=== PATIENT | male | born 1990 | race Caucasian/White ===

== ENCOUNTER 2020-12-22 14:33 | Emergency (ER) | payer OTHER, SELFPAY ==
[2020-12-22 15:34] VITALS: BP 119/67; PULSE 90; RESP 16; TEMP 36.8; O2SAT 98; BMI 27.7
[2020-12-22 17:37] VITALS: BP 128/84; PULSE 72; RESP 18; O2SAT 98
[2020-12-22 18:00] VITALS: BP 130/71; PULSE 66; RESP 18; O2SAT 96
[2020-12-22 18:00] LABS: Basophils # 0.1 10^3/uL (0.0-0.1); Basophils % 0.7 %; Eosinophils # 0.3 10^3/uL (0.0-0.8); Eosinophils % 2.2 %; Hematocrit 51.4 % (42.0-52.0); Hemoglobin 17.5 g/dL (11.7-16.6); Lymphocytes # 2.4 10^3/uL (0.8-4.8); Lymphocytes % 19.3 %; Mean Corpuscular Hemoglobin 28.5 pg (28.0-34.0); Mean Corpuscular Volume 83.6 fL (80-94); Mean Platelet Volume 9.9 fL (7.4-10.4); Monocytes # 0.7 10^3/uL (0.2-0.9); Monocytes % 6.1 %; Neutrophils # 8.72 10^3/uL (1.8-7.7); Neutrophils % 71.2 %; Nucleated Red Blood Cells % 0 %; Platelet Count 406 10^3/cmm (130-400); Red Blood Count 6.15 10^6/uL (4.1-5.3); Red Cell Distribution Width 12.2 % (12.1-15.1); White Blood Count 12.2 10^3/uL (4.0-10.0)
[2020-12-22 18:10] LABS: Add Urine Microscopic? NO; Charge for UA Resulting for Rev
[2020-12-22 18:18] LABS: Urine Appearance Clear (CLEAR); Urine Color Yellow (Yellow); pH Urine 6.5 (5-7)
--- NOTE | 2020-12-22 18:18 | ED_ITS ---
HPI - Abdominal Pain General: Chief Complaint: Abdominal Pain Stated Complaint: abd pain *1 months Time Seen by Provider: 12/22/20 17:46 History of Present Illness: HPI narrative: Patient is a 30-year-old male comes to the ED with abdominal pain. Patient says pain started about a month ago. Pain is located in the right lower quadrant of the abdomen. At rest he does not feel any pain but then when he starts moving around he starts feeling the pain in his right lower quadrant of his abdomen. Denies any nausea, vomiting, fevers, diarrhea, dysuria or hematuria. He endorses having some constipation issues. Associated Symptoms: Denies chills, constipation, diarrhea, dysuria, fever(s), hematochezia, hematuria, nausea and vomiting Review of Systems Const: Denies: fever(s), chills or fatigue Eyes: Denies: change in vision or eye discomfort ENMT: Denies: throat pain, odynophagia, nasal discharge or nasal congestion Card: Denies: chest pain, palpitations, edema, swelling of feet/ankles, dyspnea on exertion or orthopnea Resp: Denies: dyspnea, productive cough or non-productive cough GI: Reports: abdominal pain; Denies: nausea, vomiting, diarrhea, constipation or hematochezia : Denies: flank pain, difficulty urinating, dysuria or hematuria Musc: Denies: neck pain, back pain or extremity swelling Skin/Breast: Denies: rash or new lesions Neuro: Denies: headache(s), numbness in extremities or weakness in extremities PFSH ED PFSH: Social History Smoking and tobacco status: former smoker Alcohol intake: current Alcohol intake frequency: holidays/special occasions only Current gender identity: Male Physical Exam Const: COMMON NORMALS: no acute distress, patient oriented x3, healthy appearing and alert GENERAL APPEARANCE: cooperative and comfortable HENMT: COMMON NORMALS: normocephalic HEAD & SCALP: normocephalic MOUTH: Normal oral and palatal mucosa present THROAT: posterior oropharynx normal and uvula midline Neck/C-Spine: COMMON NORMALS: supple GENERAL: Yes normal visual inspection Resp: COMMON NORMALS: normal respiratory effort, No retractions, No use of accessory muscles and clear to auscultation bilaterally AUSCULTATION: clear to auscultation bilaterally Cardio: COMMON NORMALS: regular rate, regular rhythm, S1 normal heart sound present, S2 normal heart sound present, No gallops present (Cardio), No clicks present (Cardio), No murmurs present (Cardio) and Peripheral pulses 2+ throughout RATE: regular rate RHYTHM: regular rhythm HEART SOUNDS: S1 normal heart sound present and S2 normal heart sound present PERIPHERAL PULSES: Peripheral pulses 2+ throughout GI: COMMON NORMALS: Normal to inspection, nondistended, normoactive bowel sounds present, Soft to palpation and no masses PALPATION: Yes Soft to palpation and Yes Tenderness to palpation present (GI) Details: RLQ : COMMON NORMALS: Yes no CVA tenderness BLADDER/KIDNEY EXAM: Yes no CVA tenderness Back/Pelvis: COMMON NORMALS: no CVA tenderness Extremity: COMMON NORMALS: normal to inspection Neuro: COMMON NORMALS: patient oriented x3 SENSORIUM/ORIENTATION: Yes alert GAIT: Yes Normal gait present Skin: GENERAL SKIN EXAM: dry skin Course Vital Signs: Vital signs: Vital Signs Temperature 98.2 F 12/22/20 15:34 Pulse Rate 66 12/22/20 18:00 Respiratory Rate 18 12/22/20 18:00 Blood Pressure 130/71 12/22/20 18:00 Pulse Oximetry 96 12/22/20 18:00 MDM - Abdominal Pain MDM Narrative: Medical decision making narrative: Patient is a 30-year-old male comes to the ED with abdominal pain. Pain only occurs when he is up and ambulating. No pain at rest. He has no other symptoms. Abdominal pain has been going on for the past month. White blood cell count 12.2. All other labs were unremarkable. CT of abdomen pelvis showed no acute findings. Patient was diagnosed with abdominal pain and discharged home. He was told to follow-up with his PCP in 7 to 10 days for reevaluation. Return to ED precautions given. Patient understood agree with plan. Lab Data: Attestation: I reviewed the patient's lab results. Labs: Lab Results 12/22/20 12/22/20 12/22/20 Range/Units 17:45 17:45 17:45 WBC 12.2 H (4.0-10.0) 10^3/ uL RBC 6.15 H (4.1-5.3) 10^6/u L Hgb 17.5 H (11.7-16.6) g/dL Hct 51.4 (42.0-52.0) % MCV 83.6 (80-94) fL MCH 28.5 (28.0-34.0) pg MCHC 34.0 (30.0-36.0) g/dL RDW 12.2 (12.1-15.1) % Plt Count 406 H (130-400) 10^3/c mm MPV 9.9 (7.4-10.4) fL Neut % (Auto) 71.2 % Lymph % (Auto) 19.3 % [place] % (Auto) 6.1 % Eos % (Auto) 2.2 % Baso % (Auto) 0.7 % Neut # (Auto) 8.72 H (1.8-7.7) 10^3/u L Lymph # (Auto) 2.4 (0.8-4.8) 10^3/u L [place] # (Auto) 0.7 (0.2-0.9) 10^3/u L Eos # (Auto) 0.3 (0.0-0.8) 10^3/u L Baso # (Auto) 0.1 (0.0-0.1) 10^3/u L Nucleated RBC % (a uto) 0 % Nucleated RBCs # 0.0 /100WBC Sodium 140 (136-145) mmol/L Potassium 4.0 (3.5-5.1) mmol/L Chloride 103 (98-107) mmol/L Carbon Dioxide 27 (22-29) mmol/L Anion Gap 14.0 (5-19) BUN 14 (6-20) mg/dL Creatinine 0.9 (0.7-1.2) mg/dL GFR Calculation 99.1 (90-130) mL/min Glucose 86 (65-115) mg/dL Calculated Osmolal ity 290 (285-295) mOsm/k g Calcium 8.9 (8.5-10.5) mg/dL Total Bilirubin 0.5 (0.15-1.2) mg/dL AST 20 (0-40) U/L ALT 23 (0-41) U/L Alkaline Phosphata se 77 (40-130) IU/L Total Protein 7.4 (6.6-8.7) g/dL Albumin 4.8 (3.5-5.2) g/dL Globulin 2.6 (1.3-4.6) g/dL Lipase 23 (13-60) U/L Urine Color Yellow (Yellow) Urine Appearance Clear (CLEAR) Urine pH 6.5 (5-7) Ur Specific Gravit y 1.015 (1.005-1.030) Urine Protein Neg (Negative) Urine Glucose (UA) Norm (Normal) Urine Ketones Negative (Negative) Urine Blood Neg (Negative) Urine Nitrate Negative (Negative) Urine Bilirubin Neg (Negative) Urine Urobilinogen Norm (Negative) mg/dL Ur Leukocyte Lorraine ase Negative (Negative) Imaging Data ^: CT Abd/Pel: Attestation: I personally reviewed and interpreted this imaging study as follows: Radiologist's impression: [facility] [address] [address] Scan Report Signed Patient: Fernandez House Unit #: [id number] : 1990 Age/Sex: 30 / M ADM Date: 12/22/20 Loc: ER Room/Bed: Attending Dr: Ordering Provider/Ordering MD: Jf Bejarano Date of Service: 12/22/20 Procedure(s): CT abdomen pelvis w con* [id number] Accession Number(s): [id number] Report Number: [id number] PROCEDURE INFORMATION: Exam: CT Abdomen And Pelvis With Contrast Exam date and time: 12/22/2020 6:18 PM Age: 30 years old Clinical indication: Abdominal pain; Localized; Right lower quadrant (rlq); Patient HX: C/O intermittent rlq pain x 1 month; Additional info: Rlq abdom pain TECHNIQUE: Imaging protocol: Computed tomography of the abdomen and pelvis with contrast. Total images: 239 Radiation optimization: All CT scans at this facility use at least one of these dose optimization techniques: automated exposure control; mA and/or kV adjustment per patient size (includes targeted exams where dose is matched to clinical indication); or iterative reconstruction. Contrast material: OMNI 300; Contrast volume: 95 ml; Contrast route: INTRAVENOUS (IV); COMPARISON: CT abdomen pelvis w con* [id number] 09/04/2017 7:09 PM RADIATION DOSE METRICS: Total DLP (mGy-cm): 1435.11 FINDINGS: Lungs: Limited assessment of the lung bases fails to reveal evidence for active cardiopulmonary process. Liver: Rare tiny hepatic cysts. No hepatic mass. Gallbladder and bile ducts: Normal. No calcified stones. No ductal dilation. Pancreas: Pancreas is unremarkable. No visible pancreatic ductal ectasia. Spleen: Spleen unremarkable. Adrenal glands: Adrenal glands unremarkable. Kidneys and ureters: No hydronephrosis or perinephric fluid. No visible nephrolithiasis or ureterolithiasis. Stomach and bowel: Assessment of the hollow viscus fails to reveal evidence of active or acute pathology. Nonobstructed bowel pattern. No visible acute diverticulitis. No visible adynamic or reactive ileus. Appendix: The appendix is visualized and appears noninflamed. Intraperitoneal space: No visible evidence of mesenteric lymphadenitis or active mesenteritis/panniculitis. Vasculature: Portal vein patent. The abdominal aorta is nonaneurysmal. Lymph nodes: No current visible evidence of active mesenteric or retroperitoneal lymphadenopathy. Urinary bladder: Urinary bladder unremarkable. Reproductive: Unremarkable as visualized. Bones/joints: No visible active or acute osseous pathology. Bilateral spondylolysis L5/S1 with minimal grade 1 anterior spondylolisthesis. Soft tissues: Unremarkable. CT/CT abdomen pelvis w con* [id number] IMPRESSION: 1. Currently no visible evidence for acute abdominal or pelvic pathologic process. 2. The appendix is visualized and appears noninflamed. Radiation Dose CTDIVOL = (mGy): DLP = 1435.11 (mGy-cm) Dictated By: Abner Martin Signed By: Abner Martin Signed Date/Time: 12/22/201850 DD/ 48 Discharge Plan Discharge Patient Disposition: Home Clinical Impression: Abdominal pain Qualifiers: Abdominal location: right lower quadrant Qualified Code(s): R10.31 - Right lower quadrant pain Condition: Stable Prescriptions: No Action multivitamin [One Daily Multivitamin] Tablet 1 tab PO DAILY RF: 0 Adult Probiotic 3 billion cell capsule 3,000 mmu cells PO DAILY RF: 0 amoxicillin-pot clavulanate 875-125 mg tablet 1 tab PO BID 10 Days Qty: 20 RF: 0 prednisone 20 mg tablet 40 mg PO DAILY 5 Days Qty: 10 RF: 0 Discharge Orders: Discharge ED (Routine); Ordered 12/22/20 Ordered By: Jf Bejarano Referrals: Barbe,Wilmer, DO [Primary Care Provider] - Discharge Diet: Regular Discharge Activity: Resume usual activity Patient Instructions: Abdominal Pain (ED) Activity Restrictions/Additional Instructions: Follow-up with medical provider as directed in 7 to 10 days for reevaluation. Continue taking all home medications as prescribed. You can take [id number] Tylenol or ibuprofen for any pain. Make sure to drink plenty fluids and stay hydrated. Return to the ER or your medical provider if condition worsens. Please read and understand discharge instructions. Thank you for choosing [facility] for your healthcare needs today. Please realize this is an emergency room and that we are providing you with a medical screening exam and this may not be complete and all inclusive of all the testing and or work up that you may need to determine your ailment or severity of your illness. It is very important that you follow up as instructed or that you return to the Emergency Department should you have concerns or if your condition changes or worsens in any way. 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
[2020-12-22 18:19] LABS: Bilirubin Urine Neg (Negative); Blood Urine Neg (Negative); Glucose Urine UA Norm (Normal); Ketones Urine Negative (Negative); Leukocyte Esterase Urine Negative (Negative); Nitrate Urine Negative (Negative); Protein Urine Neg (Negative); Specific Gravity, Urine 1.015 (1.005-1.030); Urobilinogen Urine Norm (Negative)
[2020-12-22 18:24] LABS: Alanine Aminotransferase 23 U/L (0-41); Albumin Level 4.8 g/dL (3.5-5.2); Alkaline Phosphatase 77 IU/L (40-130); Aspartate Amino Transferase 20 U/L (0-40); Blood Urea Nitrogen 14 mg/dL (6-20); Calcium 8.9 mg/dL (8.5-10.5); Carbon Dioxide 27 mmol/L (22-29); Chloride 103 mmol/L (98-107); Globulin 2.6 g/dL (1.3-4.6); Glomerular Filtration Rate 99.1 mL/min (90-130); Glucose 86 mg/dL (65-115); Lipase 23 U/L (13-60); Osmolality Calculated 290 mOsm/kg (285-295); Sodium 140 mmol/L (136-145); Total Bilirubin 0.5 mg/dL (0.15-1.2); Total Protein 7.4 g/dL (6.6-8.7)
[2020-12-22] MEDS: iohexol 300 mg/mL 100 mL Btl IV (18:33)
[2020-12-22] MEDS: sodium chloride 0.9% 500 ML 999 ML IV (18:55)
== END 2020-12-22 19:20 | disposition home or self-care (01) ==
PROVIDERS: Family Medicine; Emergency Provider Physician Assistant; PCP Family Medicine
DX: R10.31 Right lower quadrant pain (principal); Z87.891 Personal history of nicotine dependence
CPT/HCPCS: 74177; 80053; 81003; 83690; 85025; 99283; J7040; Q9967

== ENCOUNTER → 2021-04-27 16:25 | Outpatient (BNVA) | payer OTHER, SELFPAY | PROVIDERS: PCP Family Medicine; Visit Provider Registered Nurse Neonatal Intensive Care | DX: Z20.822 Contact with and (suspected) exposure to COVID-19 (principal) | CPT/HCPCS: 87635 ==

== ENCOUNTER 2021-05-19 18:07 | Emergency (ER) | payer OTHER, SELFPAY ==
[2021-05-19 18:11] VITALS: BP 125/83; PULSE 94; RESP 17; TEMP 37.1; O2SAT 97; BMI 29.5
--- NOTE | 2021-05-19 18:37 | ECG_ITS ---
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
--- NOTE | 2021-05-19 18:37 | XRR_ITS ---
PROCEDURE INFORMATION: Exam: XR Chest Exam date and time: 05/19/2021 6:37 PM Age: 31 years old Clinical indication: Shortness of breath; Additional info: SOB, cough TECHNIQUE: Imaging protocol: XR of the chest. Views: 1 view. COMPARISON: CR Chest 1 [place] [id number] 01/20/2018 10:49 PM FINDINGS: Lungs: Unremarkable. No consolidation. Pleural spaces: Unremarkable. No pleural effusion. No pneumothorax. Heart/Mediastinum: Unremarkable. No cardiomegaly. Bones/joints: Unremarkable. XR/XR chest 1V portable [id number] IMPRESSION: No acute findings.
--- NOTE | 2021-05-19 18:39 | ED_ITS ---
HPI - SOB/Dyspnea General: Chief Complaint: Shortness of Breath/Dyspnea Stated Complaint: DIFFICULTY BREATHING/ SOB Time Seen by Provider: 05/19/21 18:16 History of Present Illness: HPI Narrative: Patient is a 31-year-old male who comes to the ED with shortness of breath and chest pain. While patient was at work he started having coughing fit and felt short of breath and some left arm numbness during episode. He also reports chest pain that has been on and off for the the past several weeks since he had covid. He reports current chest pain is sharp in the middle of the chest and comes and goes throughout the day today. Patient said he had COVID-19 approximately 3 weeks ago and he is wondering if these are potentially some residual symptoms. He has had a consistent dry cough since he had COVID-19, but today his cough flared up. Patient used his albuterol inhaler during this episode of shortness of breath and cough and it did not improve symptoms. Denies any fever, chills, diaphoresis, heart palpitations, abdominal pain, nausea/vomiting, bladder or bowel symptoms. Associated symptoms: Reports chest pain; Deny abdominal pain, fever(s), nausea, orthopnea, palpitations or vomiting Review of Systems Const: Denies: fever(s), chills or fatigue Eyes: Denies: change in vision or eye discomfort ENMT: Denies: throat pain, odynophagia, nasal discharge or nasal congestion Card: Reports: chest pain; Denies: palpitations, edema, swelling of feet/ankles, dyspnea on exertion or orthopnea Resp: Reports: dyspnea and non-productive cough; Denies: productive cough GI: Denies: abdominal pain, nausea, vomiting, diarrhea, constipation or hematochezia : Denies: flank pain, difficulty urinating, dysuria or hematuria Musc: Denies: neck pain, back pain or extremity swelling Skin/Breast: Denies: rash or new lesions Neuro: Denies: headache(s), numbness in extremities or weakness in extremities PFSH ED PFSH: Social History Smoking and tobacco status: current some day smoker Alcohol intake: current Alcohol intake frequency: holidays/special occasions only Current gender identity: Male Physical Exam Const: COMMON NORMALS: no acute distress, patient oriented x3, healthy appearing and alert GENERAL APPEARANCE: cooperative and comfortable HENMT: COMMON NORMALS: normocephalic HEAD & SCALP: normocephalic MOUTH: Normal oral and palatal mucosa present THROAT: posterior oropharynx normal and uvula midline Neck/C-Spine: COMMON NORMALS: supple GENERAL: Yes normal visual inspection Resp: COMMON NORMALS: normal respiratory effort, No retractions, No use of accessory muscles and clear to auscultation bilaterally EFFORT & INSPECTION: Yes able to speak in complete sentences, No tachypneic, No respiratory distress, No labored and Yes Actively coughing non-productive and strong AUSCULTATION: clear to auscultation bilaterally Cardio: COMMON NORMALS: regular rate, regular rhythm, S1 normal heart sound present, S2 normal heart sound present, No gallops present (Cardio), No clicks present (Cardio), No murmurs present (Cardio) and Peripheral pulses 2+ throughout RATE: regular rate RHYTHM: regular rhythm HEART SOUNDS: S1 normal heart sound present and S2 normal heart sound present PERIPHERAL PULSES: Peripheral pulses 2+ throughout GI: COMMON NORMALS: Normal to inspection, nondistended, normoactive bowel sounds present, Soft to palpation, non-tender and no masses PALPATION: Yes Soft to palpation : COMMON NORMALS: Yes no CVA tenderness BLADDER/KIDNEY EXAM: Yes no CVA tenderness Back/Pelvis: COMMON NORMALS: no CVA tenderness Extremity: COMMON NORMALS: normal to inspection Neuro: COMMON NORMALS: patient oriented x3 and moves all extremities SENSORIUM/ORIENTATION: Yes alert Skin: GENERAL SKIN EXAM: dry skin Course Reevaluation(s): Reevaluation #1: After patient received DuoNeb breathing treatment his feeling of shortness of breath improved greatly. Patient says he feels a lot better and is ready to discharge home. Time: 20:25 Vital Signs: Vital signs: Vital Signs Temperature 98.7 F 05/19/21 18:11 Pulse Rate 119 H 05/19/21 20:27 Respiratory Rate 20 H 05/19/21 20:27 Blood Pressure 125/83 05/19/21 18:11 Pulse Oximetry 98 05/19/21 20:27 MDM - SOB/Dyspnea MDM Narrative: Medical decision making narrative: Patient is a 31-year-old male comes to the ED with some shortness of breath and chest pain. Patient was diagnosed with COVID-19 on April 27. He says since then he has had residual shortness of breath and chest pain. Today felt like his shortness of breath got worse. Vitals are stable. Exam shows a healthy 31-year-old male in no acute distress or pain. He is actively coughing is a very strong hacking type cough. Lungs are clear to auscultation bilaterally. Chest x-ray showed no acute findings. Labs were unremarkable and troponin was negative. EKG showed sinus rhythm [address] segment ovation depression seen. He was given a DuoNeb breathing treatment here in the ED and his symptoms improved greatly. He was also given a dose of Solu-Medrol as well. Patient was diagnosed with persistent shortness of breath after COVID-19 and was discharged home. He was told to continue using his at home inhaler as needed for any shortness of breath I also sent with a prescription for prednisone. Follow-up with PCP in 5 to 7 days reevaluation. Return to ED precautions given. Patient understood agree with plan. Lab Data: Attestation: I reviewed the patient's lab results. Labs: Lab Results 05/19/21 05/19/21 05/19/21 18:45 18:45 18:45 WBC 9.2 10^3/uL 10^3/ uL (4.0-10.0) RBC 5.96 10^6/uL H 10 ^6/uL (4.1-5.3) Hgb 17.1 g/dL H g/dL (11.7-16.6) Hct 49.0 % % (42.0-52.0) MCV 82.2 fl fl (80-94) MCH 28.7 pg pg (28.0-34.0) MCHC 34.9 g/dL g/dL (30.0-36.0) RDW 12.1 % % (12.1-15.1) Plt Count 400 10^3/cmm 10^3 /cmm (130-400) MPV 9.7 fL fL (7.4-10.4) Neut % (Auto) 70.9 % % Lymph % (Auto) 17.9 % % [place] % (Auto) 8.9 % % Eos % (Auto) 1.5 % % Baso % (Auto) 0.5 % % Neut # (Auto) 6.49 10^3/uL 10^3 /uL (1.8-7.7) Lymph # (Auto) 1.6 10^3/uL 10^3/ uL (0.8-4.8) [place] # (Auto) 0.8 10^3/uL 10^3/ uL (0.2-0.9) Eos # (Auto) 0.1 10^3/uL 10^3/ uL (0.0-0.8) Baso # (Auto) 0.1 10^3/uL 10^3/ uL (0.0-0.1) Nucleated RBC % (a uto) 0 % % Nucleated RBCs # 0.0 /100WBC /100W BC Sodium 138 mmol/L mmol/L (136-145) Potassium 3.7 mmol/L mmol/L (3.5-5.1) Chloride 100 mmol/L mmol/L (98-107) Carbon Dioxide 24 mmol/L mmol/L (22-29) Anion Gap 17.7 (5-19) BUN 11 mg/dL mg/dL (6-20) Creatinine 0.8 mg/dL mg/dL (0.7-1.2) GFR Calculation 112.8 mL/min mL/m in (90-130) Glucose 94 mg/dL mg/dL (65-115) Calculated Osmolal ity 285 mOsm/kg mOsm/ kg (285-295) Calcium 8.9 mg/dL mg/dL (8.5-10.5) Total Bilirubin 0.4 mg/dL mg/dL (0.15-1.2) AST 23 U/L U/L (0-40) ALT 32 U/L U/L (0-41) Alkaline Phosphata se 77 IU/L IU/L (40-130) Troponin T Gen 5 n g/L 6 ng/L ng/L (0-15) Total Protein 7.3 g/dL g/dL (6.6-8.7) Albumin 4.7 g/dL g/dL (3.5-5.2) Globulin 2.6 g/dL g/dL (1.3-4.6) Urine Color Urine Appearance Urine pH Ur Specific Gravit y Urine Protein Urine Glucose (UA) Urine Ketones Urine Blood Urine Nitrate Urine Bilirubin Prot Sulfosalicyli c Acd Urine Urobilinogen Ur Leukocyte Lorraine ase Urine RBC Urine WBC Ur Squamous Epith Cells Amorphous Sediment Urine Bacteria 05/19/21 18:45 WBC RBC Hgb Hct MCV MCH MCHC RDW Plt Count MPV Neut % (Auto) Lymph % (Auto) [place] % (Auto) Eos % (Auto) Baso % (Auto) Neut # (Auto) Lymph # (Auto) [place] # (Auto) Eos # (Auto) Baso # (Auto) Nucleated RBC % (a uto) Nucleated RBCs # Sodium Potassium Chloride Carbon Dioxide Anion Gap BUN Creatinine GFR Calculation Glucose Calculated Osmolal ity Calcium Total Bilirubin AST ALT Alkaline Phosphata se Troponin T Gen 5 n g/L Total Protein Albumin Globulin Urine Color Yellow (Yellow) Urine Appearance Clear (CLEAR) Urine pH 8 H (5-7) Ur Specific Gravit y 1.010 (1.005-1.030) Urine Protein Neg (Negative) Urine Glucose (UA) Norm (Normal) Urine Ketones Negative (Negative) Urine Blood Neg (Negative) Urine Nitrate Negative (Negative) Urine Bilirubin Neg (Negative) Prot Sulfosalicyli c Acd Negative (Negative) Urine Urobilinogen Norm mg/dL mg/dL (Negative) Ur Leukocyte Lorraine ase Negative (Negative) Urine RBC None /hpf /hpf (0-2) Urine WBC None /hpf /hpf (0-5) Ur Squamous Epith Cells None /hpf /hpf (0-5) Amorphous Sediment Not Reportable Urine Bacteria None /hpf /hpf (NONE) Imaging Data^: CXR: Attestation: I personally reviewed and interpreted this imaging study as follows: Radiologist's impression: [address] [address] XRay Report Signed Patient: Fernandez House Unit #: [id number] : 1990 Age/Sex: 31 / M ADM Date: 05/19/21 Loc: ER Room/Bed: Attending Dr: Ordering Provider/Ordering MD: Jf Bejarano Date of Service: 05/19/21 Procedure(s): XR chest 1V portable [id number] Accession Number(s): [id number] Report Number: [id number] PROCEDURE INFORMATION: Exam: XR Chest Exam date and time: 05/19/2021 6:37 PM Age: 31 years old Clinical indication: Shortness of breath; Additional info: SOB, cough TECHNIQUE: Imaging protocol: XR of the chest. Views: 1 view. COMPARISON: CR Chest 1 [place] [id number] 01/20/2018 10:49 PM FINDINGS: Lungs: Unremarkable. No consolidation. Pleural spaces: Unremarkable. No pleural effusion. No pneumothorax. Heart/Mediastinum: Unremarkable. No cardiomegaly. Bones/joints: Unremarkable. XR/XR chest 1V portable [id number] IMPRESSION: No acute findings. Dictated By: Geo Peter Signed By: Geo Peter Signed Date/Time: 05/19/212009 DD/ 36 EKG Data^: EKG 1: Attestation: I personally reviewed and interpreted this EKG as follows: EKG Interpretation Date: 05/19/21 Interpretation: Sinus rhythm, 81 bpm, no other acute findings. Discharge Plan Discharge Patient Disposition: Home Clinical Impression: Persistent shortness of breath after COVID-19 Condition: Stable Prescriptions: New prednisone 20 mg tablet 20 mg PO BID 5 Days Qty: 10 RF: 0 No Action multivitamin [One Daily Multivitamin] Tablet 1 tab PO DAILY RF: 0 Adult Probiotic 3 billion cell capsule 3,000 mmu cells PO DAILY RF: 0 ascorbate calcium (vitamin C) 500 mg tablet 500 mg PO DAILY RF: 0 albuterol sulfate 90 mcg/actuation HFA aerosol inhaler 2 puff inhalation Q6H PRN (Reason: shortness of breath or wheezing) Qty: 8.5 RF: 0 azithromycin 250 mg tablet See Rx Instructions PO .COMPLEX Qty: 6 RF: 0 Discharge Orders: Discharge ED (Routine); Ordered 05/19/21 Ordered By: Jf Bejarano Referrals: Wilmer Guevara DO [Primary Care Provider] - Discharge Diet: Regular Discharge Activity: Increase activity as tolerated Patient Instructions: Shortness of Breath (ED) Activity Restrictions/Additional Instructions: Follow-up with medical provider as directed in the next 7 to 10 days for reevaluation. Take medications as prescribed. Continue using your prescribed albuterol inhaler as needed for any acute shortness of breath or wheezing. Return to the ER or your medical provider if condition worsens. Please read and understand discharge instructions. Thank you for choosing [facility] for your healthcare needs today. Please realize this is an emergency room and that we are providing you with a medical screening exam and this may not be complete and all inclusive of all the testing and or work up that you may need to determine your ailment or severity of your illness. It is very important that you follow up as instructed or that you return to the Emergency Department should you have concerns or if your condition changes or worsens in any way. 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
[2021-05-19 19:00] LABS: Basophils # 0.1 10^3/uL (0.0-0.1); Basophils % 0.5 %; Eosinophils # 0.1 10^3/uL (0.0-0.8); Eosinophils % 1.5 %; Hemoglobin 17.1 g/dL (11.7-16.6); Lymphocytes # 1.6 10^3/uL (0.8-4.8); Lymphocytes % 17.9 %; Mean Corpuscular HGB Conc 34.9 g/dL (30.0-36.0); Mean Corpuscular Hemoglobin 28.7 pg (28.0-34.0); Mean Corpuscular Volume 82.2 fl (80-94); Mean Platelet Volume 9.7 fL (7.4-10.4); Monocytes # 0.8 10^3/uL (0.2-0.9); Monocytes % 8.9 %; Neutrophils # 6.49 10^3/uL (1.8-7.7); Neutrophils % 70.9 %; Nucleated Red Blood Cells % 0 %; Platelet Count 400 10^3/cmm (130-400); Red Blood Count 5.96 10^6/uL (4.1-5.3); Red Cell Distribution Width 12.1 % (12.1-15.1); White Blood Count 9.2 10^3/uL (4.0-10.0)
[2021-05-19 19:14] LABS: Bilirubin Urine Neg (Negative); Blood Urine Neg (Negative); Glucose Urine UA Norm (Normal); Ketones Urine Negative (Negative); Leukocyte Esterase Urine Negative (Negative); Nitrate Urine Negative (Negative); Protein Urine Neg (Negative); Sulfosalicylic Acid Urine Negative (Negative); Urine Appearance Clear (CLEAR); Urine Color Yellow (Yellow); Urobilinogen Urine Norm (Negative); pH Urine 8 (5-7)
[2021-05-19 19:15] LABS: Add Urine Culture? No
[2021-05-19 19:18] LABS: Troponin T (5th) Once 6 ng/L (0-15)
[2021-05-19 19:19] LABS: Alanine Aminotransferase 32 U/L (0-41); Albumin Level 4.7 g/dL (3.5-5.2); Alkaline Phosphatase 77 IU/L (40-130); Anion Gap 17.7 (5-19); Aspartate Amino Transferase 23 U/L (0-40); Blood Urea Nitrogen 11 mg/dL (6-20); Calcium 8.9 mg/dL (8.5-10.5); Carbon Dioxide 24 mmol/L (22-29); Chloride 100 mmol/L (98-107); Creatinine Clr Calc Pharmacy 148.9424; Globulin 2.6 g/dL (1.3-4.6); Glomerular Filtration Rate 112.8 mL/min (90-130); Glucose 94 mg/dL (65-115); Osmolality Calculated 285 mOsm/kg (285-295); Potassium 3.7 mmol/L (3.5-5.1); Sodium 138 mmol/L (136-145); Total Bilirubin 0.4 mg/dL (0.15-1.2); Total Protein 7.3 g/dL (6.6-8.7)
[2021-05-19 20:15] VITALS: PULSE 117; RESP 20; O2SAT 98
[2021-05-19] MEDS: ipratropium-albuterol 3 mL Neb 6 ML INHALATION (20:15)
[2021-05-19 20:27] VITALS: PULSE 119; RESP 20; O2SAT 98
== END 2021-05-19 20:50 | disposition home or self-care (01) ==
PROVIDERS: Emergency Provider Physician Assistant; PCP Family Medicine
DX: R06.02 Shortness of breath (principal); U09.9 Post COVID-19 condition, unspecified
CPT/HCPCS: 71045; 80053; 81001; 84484; 85025; 93005; 94640; 96374; 99284; J2930

== ENCOUNTER 2021-07-01 10:22 | Emergency (ER) | payer BC, SELFPAY ==
--- NOTE | 2021-07-01 10:35 | ED_ITS ---
HPI - Abdominal Pain General: Chief Complaint: Abdominal Pain Stated Complaint: ABD Pain, Thinks its a reaction to meds Time Seen by Provider: 07/01/21 10:32 History of Present Illness: Patient complains of decreased bowel movement since starting his steroid inhaler. Patient said he tried magnesium tablets, magnesium citrate x1 and 1 enema. And he said he is having minor bowel movements and he feels like he is constipated. He does not have pain. MD elicited complaint: other (Constipation) Onset (ago): day(s) Associated Symptoms: Reports no associated symptoms, change in stool character (More small strips in size), constipation, nausea and vomiting; Denies chills and fever(s) Review of Systems Const: Denies: fever(s), chills or body aches Eyes: Denies: eye discomfort ENMT: Denies: throat pain Card: Reports: dyspnea on exertion; Denies: chest pain Resp: Denies: dyspnea GI: Reports: nausea, vomiting, constipation and change in stool character (More small strips in size); Denies: abdominal pain Skin/Breast: Denies: rash Neuro: Denies: headache(s) Psych: Denies: depression or suicidal ideation PFS ED PFSH: Social History Smoking and tobacco status: former smoker Alcohol intake: current Alcohol intake frequency: holidays/special occasions only Current gender identity: Male Physical Exam Const: COMMON NORMALS: no acute distress, patient oriented x3 and alert HENMT: COMMON NORMALS: normocephalic HEAD & SCALP: normocephalic Eye: COMMON NORMALS: EOMs intact bilaterally Neck/C-Spine: COMMON NORMALS: no JVD Resp: COMMON NORMALS: normal respiratory effort and No use of accessory muscles Cardio: COMMON NORMALS: no JVD GI: INSPECTION: Yes normal to inspection Extremity: COMMON NORMALS: normal to inspection and full ROM Neuro: COMMON NORMALS: patient oriented x3 SENSORIUM/ORIENTATION: Yes alert Psych: COMMON NORMALS: mental status grossly normal Skin: COMMON NORMALS: no rashes or lesions noted GENERAL SKIN EXAM: no rashes or lesions noted Course Vital Signs: Vital signs: Vital Signs Temperature 98.3 F 07/01/21 10:44 Pulse Rate 80 07/01/21 10:44 Respiratory Rate 17 07/01/21 10:44 Blood Pressure 123/83 07/01/21 10:44 Pulse Oximetry 98 07/01/21 10:44 MDM - Abdominal Pain Medical Decision Making Patient presents with constipation since being placed on steroid inhaler. Patient stop steroid inhaler. Still having some bowel moods but he said they are not working like they used to. Denies any abdominal pain, fever, chills or problems urinating. Patient recently had Covid. Patient no acute distress. Discharge Plan Discharge Patient Disposition: Home Clinical Impression: Constipation Condition: Stable Prescriptions: New lactulose 20 gram/30 mL solution 20 g PO BID PRN (Reason: laxative efect) 4 Days Qty: 240 0RF Discontinued Adult Probiotic 3 billion cell capsule 3,000 mmu cells PO DAILY 0RF Rx Instructions: administer with a meal fluticasone propion-salmeterol [Advair Diskus] 250-50 mcg/dose blister with device 1 inh inhalation BID Qty: 60 1RF No Action multivitamin [One Daily Multivitamin] Tablet 1 tab PO DAILY 0RF ascorbate calcium (vitamin C) 500 mg tablet 500 mg PO DAILY 0RF albuterol sulfate 90 mcg/actuation HFA aerosol inhaler 2 puff inhalation Q6H PRN (Reason: shortness of breath or wheezing) Qty: 8.5 0RF Discharge Orders: Discharge ED (Routine); Ordered 07/01/21 Ordered By: Edd Mata Referrals: Wilmer Guevara DO [Primary Care Provider] - Discharge Diet: As Directed Discharge Activity: Resume usual activity Patient Instructions: Constipation (ED) Activity Restrictions/Additional Instructions: Follow-up with medical provider as directed. Take medications as prescribed. Return to the ER or your medical provider if condition worsens. Please read and understand discharge instructions. If any questions ask please. Buy [id number] FiberCon tablets and take those also. Make sure you drink plenty of water. Follow-up your family medical provider this coming week if no significant improvement. Coding Level of Care Code ED Managed Care Director for Sunita Fwd Exam Comprehensive
[2021-07-01 10:44] VITALS: BP 123/83; PULSE 80; RESP 17; TEMP 36.8; O2SAT 98; BMI 30.7
== END 2021-07-01 11:05 | disposition home or self-care (01) ==
PROVIDERS: Emergency Provider Nurse Practitioner Family; PCP Family Medicine
DX: K59.00 Constipation, unspecified (principal); Z87.891 Personal history of nicotine dependence
CPT/HCPCS: 99282

== ENCOUNTER → 2022-01-23 11:58 | Outpatient (BNVA) | payer BC, SELFPAY | PROVIDERS: PCP Family Medicine; Visit Provider Emergency Medicine | DX: R10.9 Unspecified abdominal pain (principal); R11.0 Nausea; R10.13 Epigastric pain | CPT/HCPCS: 74018; 80053; 83690; 85025 ==

== ENCOUNTER 2022-01-27 15:23 | Emergency (ER) | payer BC, SELFPAY ==
[2022-01-27 15:28] VITALS: BP 109/74; PULSE 75; RESP 16; TEMP 36.7; O2SAT 96; BMI 29.7
--- NOTE | 2022-01-27 18:04 | USR_ITS ---
PROCEDURE INFORMATION: Exam: US Abdomen, Limited; Right Upper Quadrant Exam date and time: 01/27/2022 6:30 PM Age: 31 years old Clinical indication: Abdominal pain; Additional info: Ruq pain TECHNIQUE: Imaging protocol: Real time ultrasound of the abdomen with image documentation. Limited exam focused on the right upper quadrant. COMPARISON: US gall bladder [id number] 09/04/2017 8:42 PM FINDINGS: Liver: Liver is normal in size with no obvious cirrhosis. Normal overall echotexture. No large hepatic masses. Gallbladder: Normal. No gallstones. There is no gallbladder wall thickening. Biliary ducts: No biliary dilatation. Proximal CBD measures 3 mm. Pancreas: Mostly obscured pancreas. Right kidney: Normal. No mass. No hydronephrosis. Aorta: Details are limited due to patient's body habitus and gaseous abdomen. Distal aorta is poorly visualized. Inferior vena cava: Patent central hepatic veins and IVC. Portal venous: Patent main portal vein with normal flow direction. Intraperitoneal space: No perihepatic ascites. US/US abdomen limited [id number] IMPRESSION: Poorly visualized pancreas and distal aorta. Otherwise no significant right upper quadrant abnormalities.
--- NOTE | 2022-01-27 18:05 | W.ED.ABDPA2 ---
HPI - Abdominal Pain General: Chief Complaint: Abdominal Pain Stated Complaint: abd pains Time Seen by Provider: 01/27/22 17:59 History of Present Illness: 31-year-old presents due to abdominal pain. States that it has been on and off since April but for the past month has been significant more intense. It is worse over his right upper quadrant. Denies nausea vomiting diarrhea constipation. Denies any fever dysuria or urethral discharge. Denies chest pain or shortness of breath. Review of Systems Narrative: - CONSTITUTIONAL: Denies weight loss, fever and chills. - HEENT: Denies changes in vision and hearing. - RESPIRATORY: Denies SOB and cough. - CV: Denies palpitations and CP. - GI: As above - : Denies dysuria and urinary frequency. - MSK: Denies myalgia and joint pain. - SKIN: Denies rash and pruritus. - NEUROLOGICAL: Denies headache, weakness, numbness and syncope. - PSYCHIATRIC: Denies suicidal ideation [facility] ED PFSH: Social History Smoking and tobacco status: former smoker Alcohol intake: current Alcohol intake frequency: holidays/special occasions only Current gender identity: Male Physical Exam Narrative: EXAM NARRATIVE: - GENERAL: Alert and oriented x 3. No acute distress. Well-nourished. - EYES: EOMI. Anicteric. - HENT: Atraumatic, no C-spine tenderness. Moist mucous membranes. No scleral icterus. No cervical lymphadenopathy. - LUNGS: Clear to auscultation bilaterally. No accessory muscle use. Equal lung sounds bilaterally. No respiratory distress. - CARDIOVASCULAR: Regular rate and rhythm. No murmur. No JVD. - ABDOMEN: Soft, tender in right upper quadrant, non-distended. Negative CVA tenderness bilaterally, no rebound or guarding, positive Ferguson sign. No palpable masses. - EXTREMITIES: No edema. Non-tender. - SKIN: No rashes or lesions. Warm. - NEUROLOGIC: No meningismus or focal neurological deficits. CN II-XII grossly intact. - PSYCHIATRIC: Cooperative. Appropriate mood and affect. Course Vital Signs: Vital signs: Vital Signs Temperature 98.1 F 01/27/22 15:28 Pulse Rate 77 01/27/22 19:37 Respiratory Rate 16 01/27/22 15:28 Blood Pressure 126/76 01/27/22 19:37 Pulse Oximetry 95 01/27/22 19:37 Oxygen Delivery Me thod 01/27/22 15:28 MDM - Abdominal Pain Medical Decision Making 31-year-old presents to right upper quadrant abdominal pain. Ultrasound of the gallbladder is unremarkable. Lab work unremarkable. Discussed with patient and he may require outpatient follow-up with a HIDA scan. At this time I believe patient would be safe for discharge and outpatient follow-up. Return precautions provided. Plan was reviewed with the patient who expressed understanding. Questions answered. Patient will follow up with PCP. Patient discharged in stable condition. Lab Data : 01/27/22 18:28 01/27/22 18:28 Labs/Radiology: Radiology Impressions Abdomen Ultrasound 01/27/22 18:04 IMPRESSION: Poorly visualized pancreas and distal aorta. Otherwise no significant right upper quadrant abnormalities. Laboratory Results WBC 8.1 10^3/uL (4.0-10.0) 01/27/22 18: RBC 5.68 10^6/uL (4.1-5.3) H 01/27/22 18: Hgb 16.3 g/dL (11.7-16.6) 01/27/22 18: Hct 47.8 % (42.0-52.0) 01/27/22 18: MCV 84.2 fl (80-94) 01/27/22 18: MCH 28.7 pg (28.0-34.0) 01/27/22 18: MCHC 34.1 g/dL (30.0-36.0) 01/27/22 18: RDW 12.3 % (12.1-15.1) 01/27/22 18:28 Plt Count 359 10^3/cmm (130-400) 01/27/22 18: MPV 10.3 fL (7.4-10.4) 01/27/22 18: Neut % (Auto) 65.5 % 01/27/22 18: Lymph % (Auto) 24.1 % 01/27/22 18: [place] % (Auto) 6.8 % 01/27/22 18: Eos % (Auto) 2.7 % 01/27/22 18: Baso % (Auto) 0.7 % 01/27/22 18:28 Neut # (Auto) 5.32 10^3/uL (1.8-7.7) 01/27/22 18: Lymph # (Auto) 2.0 10^3/uL (0.8-4.8) 01/27/22 18: [place] # (Auto) 0.6 10^3/uL (0.2-0.9) 01/27/22 18: Eos # (Auto) 0.2 10^3/uL (0.0-0.8) 01/27/22 18: Baso # (Auto) 0.1 10^3/uL (0.0-0.1) 01/27/22 18: Nucleated RBC % (auto) 0 % 01/27/22 18 Nucleated RBCs # 0.0 /100WBC 01/27/22 18: Sodium 139 mmol/L (136-145) 01/27/22 18: Potassium 3.7 mmol/L (3.5-5.1) 01/27/22 18: Chloride 103 mmol/L (98-107) 01/27/22 18: Carbon Dioxide 28 mmol/L (22-29) 01/27/22 18: Anion Gap 11.7 (5-19) 01/27/22 18: BUN 15 mg/dL (6-20) 01/27/22 18: Creatinine 0.8 mg/dL (0.7-1.2) 01/27/22 18: GFR Calculation 112.8 mL/min (90-130) 01/27/22 18: Glucose 104 mg/dL (65-115) 01/27/22 18: Calculated Osmolality 289 mOsm/kg (285-295) 01/27/22 18: Calcium 9.4 mg/dL (8.5-10.5) 01/27/22 18: Total Bilirubin 0.5 mg/dL (0.15-1.2) 01/27/22 18: AST 18 U/L (0-40) 01/27/22 18: ALT 23 U/L (0-41) 01/27/22 18: Alkaline Phosphatase 83 U/L (40-130) 01/27/22 18: Total Protein 6.8 g/dL (6.6-8.7) 01/27/22 18: Albumin 4.8 g/dL (3.5-5.2) 01/27/22 18: Globulin 2.0 g/dL (1.3-4.6) 01/27/22 18: Lipase 20 U/L (13-60) 01/27/22 18:28 Urine Color Yellow (Yellow) 01/27/22 18: Urine Appearance Clear (CLEAR) 01/27/22 18: Urine pH 6.5 (5-7) 01/27/22 18: Ur Specific [place] 1.020 (1.005-1.030) 01/27/22 18: Urine Protein Neg (Negative) 01/27/22 18: Urine Glucose (UA) Norm (Normal) 01/27/22 18:28 Urine Ketones 1+ (Negative) H 01/27/22 18:28 Urine Blood Neg (Negative) 01/27/22 18: Urine Nitrate Negative (Negative) 01/27/22 18:28 Urine Bilirubin Neg (Negative) 01/27/22 18:28 Urine Urobilinogen 1 mg/dL (Negative) H 01/27/22 18:28 Ur Leukocyte Esterase Negative (Negative) 01/27/22 18:28 Urine Opiates Screen Negative ng/mL (Negative) 01/27/22 18:28 Ur Barbiturates Screen Negative ng/mL (Negative) 01/27/22 18:28 Ur Phencyclidine Scrn Negative ng/mL (Negative) 01/27/22 18: Ur Amphetamines Screen Negative ng/mL (Negative) 01/27/22 18:28 U Benzodiazepines Scrn Negative ng/mL (Negative) 01/27/22 18:28 Urine Cocaine Screen Negative ng/mL (Negative) 01/27/22 18:28 U Marijuana (THC) Screen Negative ng/mL (Negative) 01/27/22 18:28 Discharge Plan Discharge Condition: Stable Prescriptions: No Action multivitamin [One Daily Multivitamin] Tablet 1 tab PO DAILY albuterol sulfate 90 mcg/actuation HFA aerosol inhaler 2 puff inhalation Q6H PRN (Reason: shortness of breath or wheezing) Qty: 8.5 0RF milk thistle 150 mg capsule 150 mg PO DAILY Rx Instructions: give with meal/snack Saccharomyces boulardii [Daily Probiotic (S. boulardii)] 250 mg capsule 250 mg PO BID ondansetron 4 mg tablet,disintegrating 4 mg PO Q6H PRN (Reason: nausea and vomiting) Qty: 12 0RF Rx Instructions: 340b please Referrals: Wilmer Guevara DO [Primary Care Provider] - Coding Level of Care Code ED Camera Mechanic for Sunita Saini
--- NOTE | 2022-01-27 18:20 | PC.NURSE ---
pt reports left sided abdominal pain for over a year and right side of abdomen for a few weeks. Reports today pain increased to a feeling of someone stabbing him. reports new symptoms of heartburn. denies nausea or vomiting, diarrhea, fever, or dysuria.
--- NOTE | 2022-01-27 18:40 | PC.NURSE ---
unable to auscultate bowel sounds at this time due to ultrasound in pt room. pt also denies needs for pain or nausea medications at this time.
[2022-01-27 18:49] LABS: Basophils # 0.1 10^3/uL (0.0-0.1); Basophils % 0.7 %; Eosinophils # 0.2 10^3/uL (0.0-0.8); Eosinophils % 2.7 %; Hematocrit 47.8 % (42.0-52.0); Hemoglobin 16.3 g/dL (11.7-16.6); Lymphocytes % 24.1 %; Mean Corpuscular HGB Conc 34.1 g/dL (30.0-36.0); Mean Corpuscular Hemoglobin 28.7 pg (28.0-34.0); Mean Corpuscular Volume 84.2 fl (80-94); Mean Platelet Volume 10.3 fL (7.4-10.4); Monocytes # 0.6 10^3/uL (0.2-0.9); Monocytes % 6.8 %; Neutrophils # 5.32 10^3/uL (1.8-7.7); Neutrophils % 65.5 %; Nucleated Red Blood Cells % 0 %; Platelet Count 359 10^3/cmm (130-400); Red Blood Count 5.68 10^6/uL (4.1-5.3); Red Cell Distribution Width 12.3 % (12.1-15.1); White Blood Count 8.1 10^3/uL (4.0-10.0)
[2022-01-27 19:05] LABS: Alanine Aminotransferase 23 U/L (0-41); Albumin Level 4.8 g/dL (3.5-5.2); Alkaline Phosphatase 83 U/L (40-130); Anion Gap 11.7 (5-19); Aspartate Amino Transferase 18 U/L (0-40); Blood Urea Nitrogen 15 mg/dL (6-20); Calcium 9.4 mg/dL (8.5-10.5); Carbon Dioxide 28 mmol/L (22-29); Chloride 103 mmol/L (98-107); Creatinine Clr Calc Pharmacy 149.2861; Glomerular Filtration Rate 112.8 mL/min (90-130); Glucose 104 mg/dL (65-115); Lipase 20 U/L (13-60); Osmolality Calculated 289 mOsm/kg (285-295); Potassium 3.7 mmol/L (3.5-5.1); Sodium 139 mmol/L (136-145); Total Bilirubin 0.5 mg/dL (0.15-1.2); Total Protein 6.8 g/dL (6.6-8.7)
--- NOTE | 2022-01-27 19:15 | PC.NURSE ---
report given to MARQUES Neely
[2022-01-27] MEDS: sodium chloride 0.9% 1,000 ML 999 ML IV (19:17)
[2022-01-27] MEDS: morphine 4 mg/mL SDV 1 mL IVP (19:22)
[2022-01-27] MEDS: ondansetron 2 mg/ML SDV 2 mL 4 MG IVP (19:22)
[2022-01-27 19:37] VITALS: BP 126/76; PULSE 77; O2SAT 95
[2022-01-27 20:17] LABS: Add Urine Microscopic? NO; Charge for UA Resulting for Rev
[2022-01-27 20:44] LABS: Bilirubin Urine Neg (Negative); Blood Urine Neg (Negative); Glucose Urine UA Norm (Normal); Ketones Urine 1+ (Negative); Leukocyte Esterase Urine Negative (Negative); Nitrate Urine Negative (Negative); Protein Urine Neg (Negative); Urine Appearance Clear (CLEAR); Urine Color Yellow (Yellow); Urobilinogen Urine 1 mg/dL (Negative); pH Urine 6.5 (5-7)
[2022-01-27 20:47] LABS: Amphetamines Screen Urine Negative (Negative); Barbiturates Screen Urine Negative (Negative); Benzodiazepines Screen Urine Negative (Negative); Cocaine Screen Urine Negative (Negative); Opiate Screen Urine Negative (Negative); PCP Screen Urine Negative (Negative); THC Screen Urine Negative (Negative)
[2022-01-27 22:09] VITALS: BP 150/91; PULSE 66; RESP 18; TEMP 37.1; O2SAT 98
== END 2022-01-27 22:10 | disposition home or self-care (01) ==
PROVIDERS: Physician Assistant; Emergency Provider Emergency Medicine; PCP Family Medicine
DX: R10.9 Unspecified abdominal pain (principal); Z87.891 Personal history of nicotine dependence
CPT/HCPCS: 76705; 80053; 80306; 81003; 83690; 85025; 96361; 96374; 96375; 99285; J2270; J2405; J7030

== ENCOUNTER 2022-03-27 07:44 | Day surgery (SDC) | payer BC, SELFPAY ==
[2022-03-25 10:47] VITALS: BMI 29.2
[2022-03-27 08:17] VITALS: BP 114/73; PULSE 65; RESP 18; TEMP 36.1; O2SAT 98
[2022-03-27] MEDS: sodium chloride 0.9% 1,000 ML 30 ML IV (08:19)
--- NOTE | 2022-03-27 09:44 | ANES.PREANE2 ---
Pre-Anesthetic Assessment Height/Weight: Height 1.75 m Weight 89.811 kg Temp Pulse Resp BP Pulse Ox O2 Del Method 97.0 F L 65 18 114/73 98 03/27/22 08:17 03/27/22 08:17 03/27/22 08:17 03/27/22 08:17 03/27/22 08:17 03/27/22 08:17 Preop Diagnosis: epigastric pain Operation Date: 03/27/22 09:30 Proposed Procedures p [id number],K21.9,R10.13(Not Applicable) - Fernandez Wolff DO Familial anesthetic complications: none Was Beta Shahana taken within 24 hours: N/A Was Clonidine taken within 24 hours: N/A Last intake: Intake Last Liquid Date 03/26/22 Last Liquid Time 22:00 Last Solid Date 03/26/22 Last Solid Time 18:00 Last Intake: 22:00 Social No alcohol and No tobacco (quit 2 years ago) Exam alert and oriented x 3 Airway Submandibular: within normal limits Cervical ROM: within normal limits Mallampati: Class I Dentition: chipped (front top) History/ROS No significant history except as noted Pulmonary None reported uses rescue inhaler seldomly due to old covid cough CV/HEM None reported None reported Hepatic None reported GI Gastroesophageal Reflux Disease Metabolic None reported Musc/skel None reported Anesthetic Plan ASA status: 2 Anesthesia: Anesthesia Evaluation and MAC Risk of > 500 ml blood loss (7ml/kg in children): No Medications/Allergies Home Medications Medication Instructions Recorded Confirmed Last Taken Type multivitamin (One Daily 1 tab PO DAILY 09/25/20 03/27/22 03/26/22 History Multivitamin tablet) albuterol sulfate 90 mcg/actuation 2 puff inhalation Q6H PRN 05/04/21 03/27/22 03/26/22 Rx aerosol inhaler shortness of breath or wheezing #8.5 grams Saccharomyces boulardii 250 mg 250 mg PO BID 01/23/22 03/27/22 03/26/22 History capsule (Daily Probiotic (S. boulardii)) milk thistle 150 mg capsule 150 mg PO DAILY 01/23/22 03/27/22 03/26/22 History Allergies Allergy/AdvReac Type Severity Reaction Status Date / Time No Known Allergies Allergy Verified 03/27/22 08:14 Current Medications Generic Name Dose Route Start Last Admin Trade Name Freq PRN Reason Stop Dose Admin Sodium Chloride 1,000 mls @ 30 mls/hr 03/27/22 08:15 03/27/22 08:19 Sodium Chloride 0.9% IV 03/28/22 08:14 30 mls/hr .Q24H TAMMY Administration PFSH Anesthesia Medical History (Updated 02/06/22 @ 14:25 by Fernandez Wolff DO) Constipation GERD (gastroesophageal reflux disease) Surgical History History of colonoscopy Social History Smoking and tobacco status: former smoker Alcohol intake: current Alcohol intake frequency: holidays/special occasions only Current gender identity: Male Data Anesthesia Cardiac Studies: No Data to Display
--- NOTE | 2022-03-27 10:10 | P.HP_ITS ---
Providers/Chief Complaint Primary Care Provider: Wilmer Guevara DO Chief Complaint: epigastric pain History of Present Illness Fernandez House is a 32 year old male here for EGD Medications/Allergies Home Medications Medication Instructions Recorded Confirmed Last Taken Type multivitamin (One Daily 1 tab PO DAILY 09/25/20 03/27/22 03/26/22 History Multivitamin tablet) albuterol sulfate 90 mcg/actuation 2 puff inhalation Q6H PRN 05/04/21 03/27/22 03/26/22 Rx aerosol inhaler shortness of breath or wheezing #8.5 grams Saccharomyces boulardii 250 mg 250 mg PO BID 01/23/22 03/27/22 03/26/22 History capsule (Daily Probiotic (S. boulardii)) milk thistle 150 mg capsule 150 mg PO DAILY 01/23/22 03/27/22 03/26/22 History Allergies Allergy/AdvReac Type Severity Reaction Status Date / Time No Known Allergies Allergy Verified 03/27/22 08:14 PFSH Acute PFSH: Medical History (Updated 02/06/22 @ 14:25 by Fernandez Wolff DO) Constipation GERD (gastroesophageal reflux disease) Surgical History History of colonoscopy Social History Smoking and tobacco status: former smoker Alcohol intake: current Alcohol intake frequency: holidays/special occasions only Current gender identity: Male Vitals/I&O/Wt Last Vital Signs Temp 97.0 F L 03/27/22 08:17 Pulse 65 03/27/22 08:17 Resp 18 03/27/22 08:17 BP 114/73 03/27/22 08:17 Pulse Ox 98 03/27/22 08:17 O2 Del Method 03/27/22 08:17 Weight last 48 hrs Weight 198 lb A&P Assessment and plan (1) GERD (gastroesophageal reflux disease): Plan EGD Attestations Medical Necessity Statement*: Home Coding Level of Care Code Acute Quality Control Systems Manager for Chg Fwd Diagnoses GERD (gastroesophageal reflux disease) K21.9
[2022-03-27 10:20] VITALS: BP 97/80; PULSE 94; RESP 18; TEMP 36.2; O2SAT 94
[2022-03-27 10:34] VITALS: BP 101/68; PULSE 79; RESP 18; O2SAT 93
--- NOTE | 2022-03-27 17:46 | ANE.PACU2 ---
Inpatient post-anesthesia follow up: Airway intact: Yes Vital signs: Temperature 97.1 F Pulse Rate 79 Respiratory Rate 18 Blood Pressure 101/68 Pulse Oximetry 93 Oxygen Delivery Me thod Room Air Oxygen Flow Rate Fraction of Inspir ed Oxygen Hydration adequate: Yes Nausea and vomiting: No Pain level: 1 Mental status: Baseline
== END 2022-03-27 11:10 | disposition home or self-care (01) ==
PROVIDERS: PCP Family Medicine; Visit Provider Surgery
PROC: 0DJ08ZZ Inspection of Upper Intestinal Tract, Via Natural or Artificial Opening Endoscopic (ICD-10-PCS; CPT 43235; principal; 2022-03-27 09:30)
DX: R13.10 Dysphagia, unspecified (principal); K21.9 Gastro-esophageal reflux disease without esophagitis; Z87.891 Personal history of nicotine dependence; K29.50 Unspecified chronic gastritis without bleeding; Z86.16 Personal history of COVID-19
CPT/HCPCS: 43239; 88305; J2704; J7030

== ENCOUNTER 2022-04-08 10:08 | Outpatient (CLI) | payer BC, SELFPAY ==
--- NOTE | 2022-04-08 10:15 | NM_ITS ---
WS: [id number] NUCLEAR MEDICINE HIDA SCAN CLINICAL INFORMATION: abdominal pain TECHNIQUE: Following intravenous administration of 4.9 mCi of technetium 99m mebrofenin, images of th e abdomen were obtained over the course of 60 minutes. Next, gallbladder ejection fraction was determ ined by obtaining preprandial and one-hour postprandial images of the gallbladder following oral dustin stion of Ensure. COMPARISON: Ultrasound January 27, 2022 FINDINGS: Normal hepatic uptake at 5 minutes. Normal hepatic excretion. Gallbladder is visualized by 40 minutes . No evidence of acute cholecystitis. Normal small bowel and common bile duct activity. Gallbladder ejection fraction 86% within normal limits. No evidence of chronic cholecystitis. NM/NM hepatobiliary w phar* [id number] IMPRESSION: 1. No evidence of acute or chronic cholecystitis. 2. Gallbladder ejection fraction 86% within normal limits.
== END 2022-04-08 10:09 | disposition home or self-care (01) ==
LOC: RAD 10:09
PROVIDERS: Visit Provider Surgery
DX: R10.13 Epigastric pain (principal)
CPT/HCPCS: 78227; A9537

== ENCOUNTER 2022-06-10 17:16 | Inpatient (IN) | payer BC, SELFPAY ==
[2022-06-10 17:21] VITALS: BP 119/80; PULSE 77; RESP 14; TEMP 36.6; O2SAT 96
--- NOTE | 2022-06-10 17:28 | ED_ITS ---
HPI - Anxiety General: Stated Complaint: anxiety Time Seen by Provider: 06/10/22 17:18 PFSH ED PFSH: Medical History (Updated 05/15/22 @ 12:49 by Mallika Ramos) Constipation Family history of colon cancer GERD (gastroesophageal reflux disease) Psychiatric care Surgical History History of colonoscopy Social History Smoking and tobacco status: former smoker Alcohol intake: current Alcohol intake frequency: holidays/special occasions only Current gender identity: Male Discharge Plan Discharge Condition: Stable Prescriptions: No Action multivitamin [One Daily Multivitamin] Tablet 1 tab PO DAILY albuterol sulfate 90 mcg/actuation HFA aerosol inhaler 2 puff inhalation Q6H PRN (Reason: shortness of breath or wheezing) Qty: 8.5 0RF milk thistle 150 mg capsule 150 mg PO DAILY Rx Instructions: give with meal/snack Saccharomyces boulardii [Daily Probiotic (S. boulardii)] 250 mg capsule 250 mg PO BID Coding Level of Care Code ED Buckle Attaching Machine Operator for Sunita Saini
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
[2022-06-10 18:20] LABS: Basophils # 0.1 10^3/uL (0.0-0.1); Basophils % 0.7 %; Eosinophils # 0.1 10^3/uL (0.0-0.8); Eosinophils % 1.2 %; Hematocrit 49.9 % (42.0-52.0); Hemoglobin 16.9 g/dL (11.7-16.6); Lymphocytes # 2.1 10^3/uL (0.8-4.8); Lymphocytes % 20.2 %; Mean Corpuscular HGB Conc 33.9 g/dL (30.0-36.0); Mean Corpuscular Hemoglobin 28.3 pg (28.0-34.0); Mean Corpuscular Volume 83.6 fl (80-94); Mean Platelet Volume 9.9 fL (7.4-10.4); Monocytes # 0.8 10^3/uL (0.2-0.9); Monocytes % 7.7 %; Neutrophils # 7.12 10^3/uL (1.8-7.7); Neutrophils % 69.9 %; Nucleated Red Blood Cells % 0 %; Platelet Count 398 10^3/cmm (130-400); Red Blood Count 5.97 10^6/uL (4.1-5.3); Red Cell Distribution Width 12.4 % (12.1-15.1); White Blood Count 10.2 10^3/uL (4.0-10.0)
[2022-06-10 18:34] LABS: Amphetamines Screen Urine Negative (Negative); Barbiturates Screen Urine Negative (Negative); Benzodiazepines Screen Urine Negative (Negative); Cocaine Screen Urine Negative (Negative); Opiate Screen Urine Negative (Negative); PCP Screen Urine Negative (Negative); THC Screen Urine Negative (Negative)
[2022-06-10 18:56] LABS: Acetaminophen < 5.0 ug/mL (10-30); Alanine Aminotransferase 17 U/L (0-41); Albumin Level 4.4 g/dL (3.5-5.2); Alcohol Level < 10 mg/dL (0-10); Alkaline Phosphatase 71 U/L (40-130); Anion Gap 14.8 (5-19); Aspartate Amino Transferase 17 U/L (0-40); Blood Urea Nitrogen 10 mg/dL (6-20); Calcium 9.5 mg/dL (8.5-10.5); Carbon Dioxide 27 mmol/L (22-29); Chloride 102 mmol/L (98-107); Creatinine Clr Calc Pharmacy 123.6193; Globulin 2.3 g/dL (1.3-4.6); Glomerular Filtration Rate 97.8 mL/min (90-130); Glucose 104 mg/dL (65-115); Osmolality Calculated 289 mOsm/kg (285-295); Potassium 3.8 mmol/L (3.5-5.1); Salicylate 0.4 mg/dL (3-10); Sodium 140 mmol/L (136-145); Total Bilirubin 0.6 mg/dL (0.15-1.2); Total Protein 6.7 g/dL (6.6-8.7)
[2022-06-10 19:13] VITALS: BP 117/75; PULSE 79; RESP 16; O2SAT 98
[2022-06-10 19:39] VITALS: BP 106/75; PULSE 97; RESP 18; TEMP 36.7; O2SAT 96
[2022-06-10 20:42] VITALS: BP 106/75; PULSE 97; RESP 18; TEMP 36.7; O2SAT 96
[2022-06-11 05:58] VITALS: RESP 16
[2022-06-11] MEDS: multivitamin therapeutic Tablet 1 TAB PO (09:26)
[2022-06-11 14:00] VITALS: BP 104/66; PULSE 75; RESP 16; TEMP 36.8; O2SAT 96
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
[2022-06-11] MEDS: fluoxetine 10 mg Capsule 20 MG PO (19:35)
[2022-06-11 20:17] VITALS: BP 157/78; PULSE 79; RESP 18; TEMP 36.4; O2SAT 96
[2022-06-12 06:00] VITALS: RESP 18
[2022-06-12] MEDS: fluoxetine 20 mg Capsule PO (07:59)
[2022-06-12] MEDS: multivitamin therapeutic Tablet 1 TAB PO (07:59)
[2022-06-12 08:41] VITALS: PULSE 118; RESP 16; O2SAT 99
[2022-06-12 14:00] VITALS: BP 95/64; PULSE 81; RESP 16; TEMP 37.1; O2SAT 94
--- NOTE | 2022-06-12 18:32 | W.PM.NPUPNS ---
Subjective NPU Subjective: Patient presented today reporting that he feels the medication has been very helpful. We talked about his 96-hour hold ending on Friday but him seeming to have improvement and feeling more safe. He denied any issues with thoughts to harm himself or harm anyone else. He reported feeling optimistic about things moving forward and accepting that like happens in life he will need to move on from this most recent significant other. We discussed the likelihood of discharge tomorrow. Mental Status Exam MSE Comments: This is a well nourished, well developed white male with a significant eddy, in hospital scrubs and adequate grooming and eye contact. No abnormal movememnts except for mild psychomotor retardation. Cooperative with exam in no acute distress. Speech was normal rate and slightly decreased volume with dysarthria/speech impediments with the pronunciation of Rs. Mood described as better, affect is congruent. Thought process, organized. Thought content: patient denies suicidal or homicidal ideation, no delusions reported or noted and denies any auditory or visual hallucinations. Attention and concentration are intact and memory appeared reliable but none were formally tested. He is alert and oriented times three. Insight and judgment are fair. Impulse control is limited. 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 1. Continue current medications. Started Prozac 20 mg poq daily 2. Encourage individual, group and milieu therapy 3. Continue q-15 minute check for safety 4. Recommend sober living treatment at the highest level of care to which the patient is willing to commit. Involuntary Hold Information 96 Hour Hold: 96 Hour Involuntary Admission: Yes 96 Hour Hold Ending Date: 06/14/22 96 Hour Hold Ending Time: 18:25 Attestations NPU Medical Necessity Statement*: Inpatient hospitalization is medically necessary and the clinically appropriate intervention at this time. We will monitor medications and make changes as indicated. Likely length of stay is 1-3 days. Coding Level of Care Code Acute Code for [facility] Fwd Diagnoses Suicidal ideation R45.851 Homicidal ideation R45.850 Major depressive disorder F32.9 Adjustment disorder with mixed disturbance of emotions and conduct F43.25 Partner relational problem Z63.0
[2022-06-12 22:00] VITALS: BP 122/68; PULSE 86; RESP 17; TEMP 36.7; O2SAT 94
[2022-06-13 06:00] VITALS: RESP 18
[2022-06-13] MEDS: multivitamin therapeutic Tablet 1 TAB PO (08:42)
[2022-06-13] MEDS: fluoxetine 20 mg Capsule PO (08:42)
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
== END 2022-06-13 13:46 | disposition home or self-care (01) | DRG 882 ==
LOC: ER 18:08 → NP 19:03
PROVIDERS: Admitting Provider Psychiatry & Neurology Psychiatry; Emergency Provider Physician Assistant; Visit Provider Psychiatry & Neurology Psychiatry
DX: F43.25 Adjustment disorder with mixed disturbance of emotions and conduct (principal); R45.851 Suicidal ideations; F41.9 Anxiety disorder, unspecified; R45.850 Homicidal ideations; F32.9 Major depressive disorder, single episode, unspecified; F90.9 Attention-deficit hyperactivity disorder, unspecified type; Z87.891 Personal history of nicotine dependence; F10.90 Alcohol use, unspecified, uncomplicated; Z81.8 Family history of other mental and behavioral disorders; K21.9 Gastro-esophageal reflux disease without esophagitis; Z63.0 Problems in relationship with spouse or partner
CPT/HCPCS: 80053; 80306; 80307; 85025; 97150; 97165; 99285

== ENCOUNTER 2023-05-28 08:47 | Emergency (ER) | payer OTHER, SELFPAY ==
[2023-05-28 09:05] VITALS: BP 120/71; PULSE 77; RESP 15; TEMP 36.9; O2SAT 97; BMI 29.5
--- NOTE | 2023-05-28 09:24 | ED_ITS ---
HPI - Abdominal Pain 2 General: Chief Complaint: Abdominal Pain Stated Complaint: right side abd pain, N/V Time Seen by Provider: 05/28/23 08:50 Source: patient Mode of arrival: ambulatory History of Present Illness: 33-year-old male presents emergency room complaining of abdominal pain. He has been having dry heaves and nausea denies any medic easy melena hematemesis cough cramps no dysuria urgency or frequency. Refers also has pain to the epigastric area. He has not noticed anything that makes it better or worse it began this morning no previous abdominal surgeries. MD elicited complaint: abdominal pain Onset (ago): hour(s) Location: Epigastric Severity: moderate Quality: cramping Exacerbating factors: nothing Relieving factors: nothing Associated Symptoms: Reports GI cramping, nausea, poor appetite and vomiting; Denies anorexia, belching, bloating, change in bowel habits, change in stool character, chills, coffee ground emesis, constipation, diarrhea, dyspepsia, dysuria, excessive flatus, fever(s), heartburn, hematochezia, hematuria, hematemesis, fecal incontinence, loose stools, melena and syncope Review of Systems 2 Const: Denies: fever(s) or chills Card: Denies: chest pain or syncope Resp: Denies: dyspnea GI: Reports: nausea, vomiting and GI cramping; Denies: abdominal pain, hematemesis, coffee ground emesis, heartburn, diarrhea, constipation, bloating, belching, excessive flatus, fecal incontinence, change in bowel habits, change in stool character, hematochezia or melena : Denies: dysuria, urinary frequency, urinary urgency or hematuria Musc: Denies: neck pain or back pain Skin/Breast: Denies: rash PFSH ED 2 PFSH: Medical History Psychiatric care Family history of colon cancer GERD (gastroesophageal reflux disease) Constipation Surgical History History of colonoscopy Social History Smoking and tobacco/nicotine status: former use of tobacco/nicotine Alcohol intake: current Alcohol intake frequency: holidays/special occasions only Substance/Drug Use: never Current gender identity: Male Physical Exam 2 Const: COMMON NORMALS: no acute distress GENERAL APPEARANCE: cooperative and comfortable ORIENTATION/CONSCIOUSNESS: Yes awake, Yes oriented to person, Yes oriented to place and Yes oriented to time HENMT: COMMON NORMALS: normocephalic, atraumatic and hearing grossly normal bilaterally HEAD & SCALP: normocephalic and atraumatic Resp: COMMON NORMALS: normal respiratory effort, No retractions, No use of accessory muscles and clear to auscultation bilaterally AUSCULTATION: clear to auscultation bilaterally Cardio: COMMON NORMALS: regular rate, regular rhythm and No murmurs present (Cardio) RATE: regular rate RHYTHM: regular rhythm GI: COMMON NORMALS: Soft to palpation and No hepatosplenomegaly present A USCULTATION: Yes normoactive bowel sounds PALPATION: Yes Soft to palpation, No Tenderness to palpation present (GI), No Guarding due to palpation present (GI) and Yes No hepatosplenomegaly present Extremity: COMMON NORMALS: normal to inspection, capillary refill normal, no clubbing, cyanosis or edema, no calf tenderness and no pedal edema Neuro: SENSORIUM/ORIENTATION: Yes oriented to person, Yes oriented to place and Yes oriented to time Skin: COMMON NORMALS: no rashes or lesions noted GENERAL SKIN EXAM: no rashes or lesions noted Course 2 Vital Signs: Vital signs: Vital Signs Temperature 98.5 F 05/28/23 09:05 Pulse Rate 69 05/28/23 11:51 Respiratory Rate 15 05/28/23 09:05 Blood Pressure 124/71 05/28/23 11:51 Pulse Oximetry 94 05/28/23 11:51 Oxygen Delivery Me thod Room Air 05/28/23 10:44 MDM - Abdominal Pain Medical Decision Making Labs reviewed no acute finding on exam labs unremarkable. Will discharge patient home start Protonix 40 twice daily for 10 days then 40 daily. Follow-up with primary care Medical Records I reviewed the patient's medical records. Lab Data I reviewed the patient's lab results. 05/28/23 09:17 05/28/23 09:17 Labs/Radiology: Laboratory Results WBC 6.54 10^3/uL (3.29-11.43) 05/28/23 09:17 RBC 5.76 10^6/uL (3.85-5.65) H 05/28/23 09:17 Hgb 16.30 g/dL (11.27-16.99) 05/28/23 09:17 Hct 47.3 % (37-53) 05/28/23 09:17 MCV 82.1 fl (82-101) 05/28/23 09:17 MCH 28.3 pg (27-33) 05/28/23 09:17 MCHC 34.5 g/dL (30-55) 05/28/23 09:17 RDW 12.3 % (12.1-15.1) 05/28/23 09:17 Plt Count 364 10^3/cmm (157-399) 05/28/23 09:17 MPV 9.6 fL (7.4-10.4) 05/28/23 09:17 Neut % (Auto) 54.7 % 05/28/23 09:17 Lymph % (Auto) 28.4 % 05/28/23 09:17 [place] % (Auto) 9.5 % 05/28/23 09:17 Eos % (Auto) 6.1 % 05/28/23 09:17 Baso % (Auto) 0.8 % 05/28/23 09:17 Neut # (Auto) 3.58 10^3/uL (1.8-7.7) 05/28/23 09:17 Lymph # (Auto) 1.9 10^3/uL (0.8-4.8) 05/28/23 09:17 [place] # (Auto) 0.6 10^3/uL (0.2-0.9) 05/28/23 09:17 Eos # (Auto) 0.4 10^3/uL (0.0-0.8) 05/28/23 09:17 Baso # (Auto) 0.1 10^3/uL (0.0-0.1) 05/28/23 09:17 Nucleated RBC % (auto) 0 % 05/28/23 09:17 Nucleated RBCs # 0.0 /100WBC 05/28/23 09:17 Sodium 137 mmol/L (136-145) 05/28/23 09:17 Potassium 4.3 mmol/L (3.5-5.1) 05/28/23 09:17 Chloride 103 mmol/L (98-107) 05/28/23 09:17 Carbon Dioxide 25 mmol/L (22-29) 05/28/23 09:17 Anion Gap 13.3 (5-19) 05/28/23 09:17 BUN 13 mg/dL (6-20) 05/28/23 09:17 Creatinine 0.9 mg/dL (0.7-1.2) 05/28/23 09:17 GFR Calculation 97.2 mL/min (90-130) 05/28/23 09:17 Glucose 99 mg/dL (65-115) 05/28/23 09:17 Calculated Osmolality 284 mOsm/kg (285-295) L 05/28/23 09:17 Calcium 9.2 mg/dL (8.5-10.5) 05/28/23 09:17 Total Bilirubin 0.5 mg/dL (0.15-1.2) 05/28/23 09:17 AST 17 U/L (0-40) 05/28/23 09:17 ALT 26 U/L (0-41) 05/28/23 09:17 Alkaline Phosphatase 68 U/L (40-130) 05/28/23 09:17 Total Protein 6.9 g/dL (6.6-8.7) 05/28/23 09:17 Albumin 4.4 g/dL (3.5-5.2) 05/28/23 09:17 Globulin 2.5 g/dL (1.3-4.6) 05/28/23 09:17 Lipase 19 U/L (13-60) 05/28/23 09:17 Urine Color Yellow (Yellow) 05/28/23 10:25 Urine Appearance Clear (CLEAR) 05/28/23 10:25 Urine pH 6 (5-7) 05/28/23 10:25 Ur Specific [place] 1.020 (1.005-1.030) 05/28/23 10:25 Urine Protein Neg (Negative) 05/28/23 10:25 Urine Glucose (UA) Norm (Normal) 05/28/23 10:25 Urine Ketones Negative (Negative) 05/28/23 10:25 Urine Blood Neg (Negative) 05/28/23 10:25 Urine Nitrate Negative (Negative) 05/28/23 10:25 Urine Bilirubin Neg (Negative) 05/28/23 10:25 Urine Urobilinogen Norm mg/dL (Negative) 05/28/23 10:25 Ur Leukocyte Esterase Negative (Negative) 05/28/23 10:25 No radiology studies performed this visit Discharge Plan Discharge Patient Disposition: Home Clinical Impression: Abdominal pain, Epigastric pain Condition: Stable Prescriptions: New Protonix 40 mg tablet,delayed release (DR/EC) 40 mg PO BID 10 Days Qty: 20 0RF No Action multivitamin [One Daily Multivitamin] Tablet 1 tab PO DAILY albuterol sulfate 90 mcg/actuation HFA aerosol inhaler 2 puff inhalation Q6H PRN (Reason: shortness of breath or wheezing) Qty: 8.5 0RF milk thistle 150 mg capsule 150 mg PO DAILY Rx Instructions: give with meal/snack Saccharomyces boulardii [Daily Probiotic (S. boulardii)] 250 mg capsule 250 mg PO BID fluticasone propionate 50 mcg/actuation spray,suspension 1 spray intranasal DAILY PRN (Reason: allergy symptoms) Qty: 16 0RF Rx Instructions: administer into each nostril Fiber 6 1,000 mg Tablet 1 tab PO DAILY Discharge Orders: Discharge ED (Routine); Ordered 05/28/23 Ordered By: Yo Griggs Discharge Diet: As Directed Discharge Activity: Increase activity as tolerated Patient Instructions: Diet for Stomach Ulcers and Gastritis (ED), GERD (Gastroesophageal Reflux Disease) (ED), Abdominal Pain (ED), Opioid Safety, Pain Management Stand Alone Forms: Work/School Release Coding Level of Care Code ED [employer] for [employer]
[2023-05-28 09:26] LABS: Basophils # 0.1 10^3/uL (0.0-0.1); Basophils % 0.8 %; Eosinophils # 0.4 10^3/uL (0.0-0.8); Eosinophils % 6.1 %; Hematocrit 47.3 % (37-53); Lymphocytes # 1.9 10^3/uL (0.8-4.8); Lymphocytes % 28.4 %; Mean Corpuscular HGB Conc 34.5 g/dL (30-55); Mean Corpuscular Hemoglobin 28.3 pg (27-33); Mean Corpuscular Volume 82.1 fl (82-101); Mean Platelet Volume 9.6 fL (7.4-10.4); Monocytes # 0.6 10^3/uL (0.2-0.9); Monocytes % 9.5 %; Neutrophils # 3.58 10^3/uL (1.8-7.7); Neutrophils % 54.7 %; Nucleated Red Blood Cells % 0 %; Platelet Count 364 10^3/cmm (157-399); Red Blood Count 5.76 10^6/uL (3.85-5.65); Red Cell Distribution Width 12.3 % (12.1-15.1); White Blood Count 6.54 10^3/uL (3.29-11.43)
[2023-05-28] MEDS: sodium chloride 0.9% 1,000 ML 999 ML IV (09:26)
[2023-05-28] MEDS: ondansetron 2 mg/ML SDV 2 mL 4 MG IVP (09:27)
[2023-05-28 09:37] VITALS: BP 130/82; PULSE 77; O2SAT 95
[2023-05-28 09:42] LABS: Alanine Aminotransferase 26 U/L (0-41); Albumin Level 4.4 g/dL (3.5-5.2); Alkaline Phosphatase 68 U/L (40-130); Anion Gap 13.3 (5-19); Aspartate Amino Transferase 17 U/L (0-40); Blood Urea Nitrogen 13 mg/dL (6-20); Calcium 9.2 mg/dL (8.5-10.5); Carbon Dioxide 25 mmol/L (22-29); Chloride 103 mmol/L (98-107); Globulin 2.5 g/dL (1.3-4.6); Glomerular Filtration Rate 97.2 mL/min (90-130); Glucose 99 mg/dL (65-115); Lipase 19 U/L (13-60); Osmolality Calculated 284 mOsm/kg (285-295); Potassium 4.3 mmol/L (3.5-5.1); Sodium 137 mmol/L (136-145); Total Bilirubin 0.5 mg/dL (0.15-1.2); Total Protein 6.9 g/dL (6.6-8.7)
[2023-05-28 10:25] VITALS: BP 137/72; PULSE 77; O2SAT 94
[2023-05-28 10:36] LABS: Add Urine Microscopic? NO; Charge for UA Resulting for Rev
[2023-05-28 10:44] VITALS: BP 116/67; PULSE 75; O2SAT 94
[2023-05-28 10:49] LABS: Bilirubin Urine Neg (Negative); Blood Urine Neg (Negative); Glucose Urine UA Norm (Normal); Ketones Urine Negative (Negative); Leukocyte Esterase Urine Negative (Negative); Nitrate Urine Negative (Negative); Protein Urine Neg (Negative); Urine Appearance Clear (CLEAR); Urine Color Yellow (Yellow); Urobilinogen Urine Norm (Negative); pH Urine 6 (5-7)
[2023-05-28 11:51] VITALS: BP 124/71; PULSE 69; O2SAT 94
== END 2023-05-28 11:50 | disposition home or self-care (01) ==
PROVIDERS: Emergency Provider Family Medicine
DX: R10.13 Epigastric pain (principal); Z87.891 Personal history of nicotine dependence
CPT/HCPCS: 36415; 80053; 81003; 83690; 85025; 96361; 96374; 99284; J2405; J7030